=== PATIENT | male | born 1960 | race Caucasian/White ===

== ENCOUNTER 2016-11-24 16:02 | Inpatient (IN) | payer BC ==
[~2016-11-24] VITALS: Ht 182.9 cm; Wt 107.8 kg
[~2016-11-24 16:02] MED LIST: ACTOS 15MG TAB15 MG PO; APRESOLINE 25MG25 MG PO; CEPHALEXIN500 M1 PO; COREG12.5 MG PO; FLEXERIL 1010 MG/TAB PO; LASIX 40MG TABL40 MG PO; LEVEMIR FLEX100 U/ML SQ; NORCO 325 MG-101 TAB PO; NOVOLOG FLEX100 U/ML SQ; PHOS LO; PRILOSEC 20MG20 MG PO; SYNTHROID0.1 MG/TAB PO
[2016-11-24] MEDS ORDERED: LASIX 80MG TABL80 MG PO (17:09)
[2016-11-24] MEDS ORDERED: PRILOSEC 20MG20 MG PO (17:14)
[2016-11-24] MEDS ORDERED: FLEXERIL 1010 MG/TAB PO (17:16)
[2016-11-24] MEDS ORDERED: APRESOLINE50 MG PO (17:18)
[2016-11-24] MEDS ORDERED: NEURONTIN800 MG/TAB PO (17:18)
[2016-11-24] MEDS ORDERED: VELTASSA8.4 GM PO (17:20)
[2016-11-24] MEDS ORDERED: ZAROXOLYN 2.52.5 MG PO (17:22)
[2016-11-24] MEDS ORDERED: CALCITRIOL PO (17:24)
[2016-11-24] MEDS ORDERED: CARDURA 2MG2 MG PO (17:24)
[2016-11-24 19:51] VITALS: BP 171/77; PULSE 53; TEMP 98.6
[2016-11-24 22:33] VITALS: BP 139/63; PULSE 53; TEMP 98.3
[2016-11-25 02:46] VITALS: BP 139/65; PULSE 56; TEMP 98.4
[2016-11-25 07:26] LABS: ADD PATHOLOGY DIFF REVIEW NO; HEMATOCRIT 24.9 % (42.0-52.0); HEMOGLOBIN 7.9 g/dl (13.5-18.0); MEAN CELL VOLUME 97 fl (80.0-100.0); MEAN CORPUSCULAR HEMOGLOBIN 31 pg (27.0-31.0); MEAN CORPUSCULAR HGB CONC 32 g/dl (33.0-37.0); MEAN PLATELET VOLUME 10.7 fl (7.4-10.4); PLATELET COUNT 130 K/mm3 (130-400); RED BLOOD COUNT 2.57 M/mm3 (4.20-5.60); REDCELL DISTRIBUTION WIDTH-CV 16.3 % (11.5-14.5); WHITE BLOOD COUNT 3.9 K/mm3 (4.8-10.8)
[2016-11-25 07:31] LABS: INR 1.2 (0.8-3.0); PROTHROMBIN TIME 13.1 SECONDS (9.7-12.8)
[2016-11-25 07:39] VITALS: BP 162/73; PULSE 55; TEMP 97.3
[2016-11-25 07:42] LABS: CALCIUM 8.3 mg/dL (8.4-10.2); POTASSIUM 5.1 mmol/L (3.4-5.0)
[2016-11-25 07:54] LABS: CREATININE, serum 4.5 mg/dL (0.66-1.25)
[2016-11-25 08:44] LABS: BAND 4 % (0-10); BASOPHIL 2 % (0-2); EOSINOPHIL 4 % (0-4); METAMYELOCYTE 4 % (0-0); NEUTROPHILS 64 % (42.0-75.2); PLATELET ESTIMATE NORMAL (NORMAL); TOTAL CELLS COUNTED 100
[2016-11-25 08:46] LABS: ACANTHOCYTES 1+; ANISOCYTOSIS 1+; MICROCYTOSIS 1+
[2016-11-25 11:32] VITALS: BP 206/87; PULSE 51
[2016-11-25 12:12] LABS: ARTERIAL BLD GAS O2 SATURATION 98.7 % (92-100); ARTERIAL BLOOD GAS BASE EXCESS -7.5 (-2-2); ARTERIAL BLOOD GAS HCO3 17.7 meq/L (22-26); ARTERIAL BLOOD GAS PO2 243.1 mmHg (80-100); ARTERIAL BLOOD GAS pH 7.32 (7.35-7.45)
[2016-11-25 12:13] LABS: ARTERIAL BLD GAS TCO2 CT 18.8; ATS? YES
[2016-11-25 16:38] VITALS: BP 140/88; PULSE 60; TEMP 98.1
[2016-11-25 16:59] VITALS: BP 143/69; PULSE 51; TEMP 98.9
[2016-11-25 19:39] LABS: MEAN CELL VOLUME 97 fl (80.0-100.0); MEAN CORPUSCULAR HGB CONC 31 g/dl (33.0-37.0); MEAN PLATELET VOLUME 11.1 fl (7.4-10.4); PLATELET COUNT 123 K/mm3 (130-400); REDCELL DISTRIBUTION WIDTH-CV 16.2 % (11.5-14.5); WHITE BLOOD COUNT 6.6 K/mm3 (4.8-10.8)
[2016-11-25 19:40] LABS: HEMATOCRIT 28.2 % (42.0-52.0); HEMOGLOBIN 8.8 g/dl (13.5-18.0); MEAN CORPUSCULAR HEMOGLOBIN 30 pg (27.0-31.0)
[2016-11-25 19:42] LABS: ADD PATHOLOGY DIFF REVIEW NO
[2016-11-25 19:44] LABS: INR 1.2 (0.8-3.0); PROTHROMBIN TIME 13.2 SECONDS (9.7-12.8)
[2016-11-25 19:49] LABS: ALBUMIN 3.4 gm/dL (3.5-5.0); BILIRUBIN,TOTAL 0.7 mg/dL (0.0-1.0); CALCIUM 8.5 mg/dL (8.4-10.2); CREATININE, serum 3.87 mg/dL (0.66-1.25); MAGNESIUM 2.2 mg/dL (1.6-2.3); PHOSPHOROUS 5.6 mg/dL (2.5-4.5); TOTAL PROTEIN 6.1 gm/dL (6.4-8.2)
[2016-11-25 20:01] LABS: BAND 4 % (0-10); BASOPHIL 2 % (0-2); EOSINOPHIL 2 % (0-4); HYPOCHROMIA 1+; NEUTROPHILS 72 % (42.0-75.2); POIKILOCYTOSIS 2+; SCHISTOCYTES 1+; TARGET CELLS 1+; TOTAL CELLS COUNTED 100
[2016-11-25 20:02] LABS: ANISOCYTOSIS 1+; BURR CELLS 1+; MICROCYTOSIS 1+; ROULEAUX 1+
[2016-11-25 20:03] LABS: TROPONIN-I 0.083 ng/mL (0.000-0.034)
[2016-11-25 20:17] LABS: ARTERIAL BLD GAS O2 SATURATION 41.5 % (92-100); ARTERIAL BLD GAS TCO2 CT 25.5; ARTERIAL BLOOD GAS HCO3 23.6 meq/L (22-26); ARTERIAL BLOOD GAS PHT 7.21 C (7.35-7.45); ARTERIAL BLOOD GAS pH 7.21 (7.35-7.45)
[2016-11-25 20:25] LABS: ARTERIAL BLOOD GAS PO2 26.3 mmHg (80-100); ARTERIAL BLOOD GAS PO2T 26.3 (80-100)
[2016-11-25 20:26] LABS: ALLEN TEST YES; ALLENS TEST RESULT PASS; ATS? YES
[2016-12-11] MEDS ORDERED: NORVASC 10MG10 MG PO (11:42)
[2016-12-11] MEDS ORDERED: COZAAR 50MG50 MG/TAB PO (11:42)
[2016-12-11] MEDS ORDERED: APRESOLINE50 MG PO (11:43)
[2016-12-11] MEDS ORDERED: NEURONTIN300 MG/CAP PO (11:44)
[2016-12-11] MEDS ORDERED: NORCO 325 MG-51 TAB PO (11:45)
[2016-12-11] MEDS ORDERED: NOVOLOG 100U100 U/M1 SQ (11:46)
== END 2016-11-25 20:14 | disposition short-term general hospital (02) | DRG 682 ==
LOC: MEDICAL 16:02 → ICU 11-25 14:31 → MEDICAL 11-25 15:39 → ICU 11-25 19:42 → MEDICAL 11-25 20:00
PROVIDERS: Internal Medicine
PROC: 0BH17EZ Insertion of Endotracheal Airway into Trachea, Via Natural or Artificial Opening (ICD-10-PCS; principal; 2016-11-25)
PROC: 5A1935Z Respiratory Ventilation, Less than 24 Consecutive Hours (ICD-10-PCS; 2016-11-25)
PROC: 5A1D00Z (ICD-10-PCS; 2016-11-25)
DX: I12.0 Hypertensive chronic kidney disease with stage 5 chronic kidney disease or end stage renal disease (principal); N18.6 End stage renal disease; I46.8 Cardiac arrest due to other underlying condition; E87.2 Acidosis; D63.1 Anemia in chronic kidney disease; E87.5 Hyperkalemia; E11.21 Type 2 diabetes mellitus with diabetic nephropathy; Z79.4 Long term (current) use of insulin; Z91.81 History of falling
CPT/HCPCS: C1751; C1769; J0171; J0461; J0690; J1940; J2250; J2310; J2704; J3010; J7120

== ENCOUNTER → 2016-12-12 | Outpatient (CLI) | payer BC ==
[~2016-12-12] VITALS: Ht 182.9 cm; Wt 77.3 kg
[~2016-12-12] MED LIST changes: +APRESOLINE50 MG PO; +ARANESP0.06 MG/0. SQ; +CALCITRIOL PO; +CARAFATE 1GM1 G PO; +CARDURA 2MG2 MG PO; +COZAAR 50MG50 MG/TAB PO; +ELIQUIS 5MG PO; +FERRO-TIME325 MG PO; +FLONASEALLERGY NS; +FOLIC ACID 11 MG/TA1 PO; +GOOD NEIGHBOR P1 CRE TP; +IMODIUM 2MG CAPS2 MG PO; +LASIX 80MG TABL80 MG PO; +MYLICON 8080 MG/TAB. PO; +NEURONTIN300 MG/CAP PO; +NEURONTIN800 MG/TAB PO; +NORCO 325 MG-51 TAB PO; +NORVASC 10MG10 MG PO; +NOVOLOG 100U100 U/M1 SQ; +OMNICEF 300MG300 MG PO; +PACERONE400 MG PO; +PHENERGAN 25 TA25 MG PO; +PROAIR HFA0.09 MG/AC IH; +ROXICODONE15 MG PO; +VELTASSA8.4 GM PO; +ZANTAC 150MG T150 MG PO; +ZAROXOLYN 2.52.5 MG PO; +ZOFRAN ODT4 MG PO; +[UNRECOGNIZED DRUG - OTHER] PO
[2016-12-12 07:34] VITALS: BP 156/81; PULSE 73
[2016-12-12 08:21] VITALS: BP 166/87; PULSE 75
== END ==
LOC: COL.RAD 07:14
DX: N18.6 End stage renal disease (principal)

== ENCOUNTER 2017-01-19 14:24 | Inpatient (IN) | payer BC ==
[~2017-01-19] VITALS: Ht 182.9 cm; Wt 72.9 kg
[~2017-01-19 14:24] MED LIST changes: -ARANESP0.06 MG/0. SQ; -CARAFATE 1GM1 G PO; -ELIQUIS 5MG PO; -FERRO-TIME325 MG PO; -FLONASEALLERGY NS; -FOLIC ACID 11 MG/TA1 PO; -GOOD NEIGHBOR P1 CRE TP; -IMODIUM 2MG CAPS2 MG PO; -MYLICON 8080 MG/TAB. PO; -OMNICEF 300MG300 MG PO; -PACERONE400 MG PO; -PHENERGAN 25 TA25 MG PO; -PROAIR HFA0.09 MG/AC IH; -ROXICODONE15 MG PO; -ZANTAC 150MG T150 MG PO; -ZOFRAN ODT4 MG PO; -[UNRECOGNIZED DRUG - OTHER] PO
[2017-01-19 16:24] LABS: CALCIUM 8.7 mg/dL (8.4-10.2)
[2017-01-19 16:35] LABS: CREATININE, serum 6.26 mg/dL (0.66-1.25); POTASSIUM 6.4 mmol/L (3.4-5.0)
[2017-01-19] MEDS ORDERED: ZAROXOLYN 2.52.5 MG PO (17:05)
[2017-01-19] MEDS ORDERED: FOLIC ACID 11 MG/TA1 PO (17:06)
[2017-01-19] MEDS ORDERED: NORCO 325 MG-51 TAB PO (17:08)
[2017-01-19] MEDS ORDERED: FLEXERIL 1010 MG/TAB PO (17:10)
[2017-01-19] MEDS ORDERED: LASIX 80MG TABL80 MG PO (17:13)
[2017-01-19] MEDS ORDERED: FLONASEALLERGY NS (17:14)
[2017-01-19] MEDS ORDERED: PRILOSEC 20MG20 MG PO (17:15)
[2017-01-19] MEDS ORDERED: ROXICODONE15 MG PO (17:16)
[2017-01-19] MEDS ORDERED: [UNRECOGNIZED DRUG - OTHER] PO (17:17)
[2017-01-19] MEDS ORDERED: FERRO-TIME325 MG PO (17:19)
[2017-01-19 17:41] VITALS: BP 103/55; PULSE 67; TEMP 98.8
[2017-01-19 20:16] LABS: HEMATOCRIT 33.6 % (42.0-52.0); HEMOGLOBIN 10.4 g/dl (13.5-18.0); MEAN CELL VOLUME 101 fl (80.0-100.0); MEAN CORPUSCULAR HEMOGLOBIN 31 pg (27.0-31.0); MEAN CORPUSCULAR HGB CONC 31 g/dl (33.0-37.0); MEAN PLATELET VOLUME 11.4 fl (7.4-10.4); PLATELET COUNT 146 K/mm3 (130-400); RED BLOOD COUNT 3.34 M/mm3 (4.20-5.60); WHITE BLOOD COUNT 14.7 K/mm3 (4.8-10.8)
[2017-01-19 20:48] VITALS: BP 145/65; PULSE 73; TEMP 98.4
[2017-01-19 23:24] VITALS: BP 126/70; PULSE 75; TEMP 98.3
[2017-01-20 03:23] VITALS: BP 137/63; PULSE 75; TEMP 98.5
[2017-01-20 06:21] LABS: MEAN CORPUSCULAR HGB CONC 33 g/dl (33.0-37.0); MEAN PLATELET VOLUME 10.7 fl (7.4-10.4); PLATELET COUNT 135 K/mm3 (130-400); RED BLOOD COUNT 3.34 M/mm3 (4.20-5.60)
[2017-01-20 06:25] LABS: HEMATOCRIT 31.3 % (42.0-52.0); HEMOGLOBIN 10.4 g/dl (13.5-18.0); MEAN CELL VOLUME 94 fl (80.0-100.0); MEAN CORPUSCULAR HEMOGLOBIN 31 pg (27.0-31.0)
[2017-01-20 06:35] LABS: ADJUSTED CALCIUM 9.3 mg/dL (8.4-10.2); ALBUMIN 3.4 gm/dL (3.5-5.0); BILIRUBIN,TOTAL 0.8 mg/dL (0.0-1.0); CALCIUM 8.8 mg/dL (8.4-10.2); TOTAL PROTEIN 6.5 gm/dL (6.4-8.2)
[2017-01-20 06:53] LABS: CREATININE, serum 6.27 mg/dL (0.66-1.25)
[2017-01-20 07:47] LABS: BAND 47 % (0-10); LYMPHOCYTE 8 % (20.0-51.0); METAMYELOCYTE 4 % (0-0); MYELOCYTE 3 % (0-0); NEUTROPHILS 38 % (42.0-75.2); PLATELET ESTIMATE NORMAL (NORMAL); TOTAL CELLS COUNTED 100
[2017-01-20 07:48] LABS: ADD PATHOLOGY DIFF REVIEW YES
[2017-01-20 07:56] VITALS: BP 137/68; PULSE 81; TEMP 98.1
[2017-01-20 08:25] LABS: PATHOLOGY DIFF REVIEW OK
[2017-01-20 15:47] VITALS: BP 130/66; PULSE 69; TEMP 99.2
[2017-01-20 20:21] VITALS: BP 138/62; PULSE 85; TEMP 97.9
[2017-01-20 21:14] LABS: COLLECTION METHOD CLEAN CATCH
[2017-01-20 21:25] LABS: AMORPHOUS CRYSTAL Present /uL; GRANULAR CAST >12 /lpf; HYALINE CAST >12 /lpf; MUCOUS Present /lpf; PH 5 (5-8); SQUAMOUS EPITHELIAL 0-2 /hpf; URINE APPEARANCE Cloudy; URINE BACTERIA Rare /hpf; URINE BILIRUBIN Negative (NEGATIVE); URINE BLOOD Negative (NEGATIVE); URINE COLOR Amber; URINE GLUCOSE Negative (NEGATIVE); URINE KETONE Negative (NEGATIVE); URINE LEUKOCYTE ESTERASE Negative (NEGATIVE); URINE PROTEIN(semi-quant) 2+ (NEGATIVE); URINE UROBILINOGEN Negative (NEGATIVE)
[2017-01-21 00:17] VITALS: BP 133/66; PULSE 91; TEMP 98.1
[2017-01-21 04:08] VITALS: BP 136/61; PULSE 86; TEMP 97.9
[2017-01-21 07:26] LABS: MEAN CELL VOLUME 92 fl (80.0-100.0); MEAN CORPUSCULAR HGB CONC 34 g/dl (33.0-37.0); MEAN PLATELET VOLUME 10.5 fl (7.4-10.4); PLATELET COUNT 140 K/mm3 (130-400); RED BLOOD COUNT 3.14 M/mm3 (4.20-5.60); WHITE BLOOD COUNT 9.4 K/mm3 (4.8-10.8)
[2017-01-21 07:36] VITALS: BP 146/67; PULSE 87; TEMP 98.8
[2017-01-21 07:44] LABS: HEMATOCRIT 28.9 % (42.0-52.0); HEMOGLOBIN 9.7 g/dl (13.5-18.0); MEAN CORPUSCULAR HEMOGLOBIN 31 pg (27.0-31.0)
[2017-01-21 07:45] LABS: ADD PATHOLOGY DIFF REVIEW NO
[2017-01-21 07:48] LABS: ADJUSTED CALCIUM 9.2 mg/dL (8.4-10.2); ALBUMIN 3.1 gm/dL (3.5-5.0); CALCIUM 8.5 mg/dL (8.4-10.2); POTASSIUM 4.5 mmol/L (3.4-5.0)
[2017-01-21 08:13] LABS: CREATININE, serum 4.08 mg/dL (0.66-1.25)
[2017-01-21 09:35] LABS: BAND 54 % (0-10); LYMPHOCYTE 4 % (20.0-51.0); METAMYELOCYTE 1 % (0-0); NEUTROPHILS 37 % (42.0-75.2); PLATELET ESTIMATE NORMAL (NORMAL); TOTAL CELLS COUNTED 100
[2017-01-21 11:43] VITALS: BP 134/63; PULSE 83; TEMP 98.3
[2017-01-21 15:19] VITALS: BP 125/69; PULSE 79; TEMP 98.4
[2017-01-21 19:45] VITALS: BP 125/62; PULSE 80; TEMP 97.9
[2017-01-22] VITALS (7 sets, daily range): BP systolic 120–175; BP diastolic 51–82; PULSE 79–98; TEMP 10.4
[2017-01-22 08:23] LABS: MEAN CELL VOLUME 91 fl (80.0-100.0); MEAN CORPUSCULAR HGB CONC 34 g/dl (33.0-37.0); MEAN PLATELET VOLUME 10.6 fl (7.4-10.4); PLATELET COUNT 163 K/mm3 (130-400)
[2017-01-22 08:25] LABS: ADD PATHOLOGY DIFF REVIEW NO; HEMATOCRIT 29.2 % (42.0-52.0); HEMOGLOBIN 9.8 g/dl (13.5-18.0); MEAN CORPUSCULAR HEMOGLOBIN 31 pg (27.0-31.0)
[2017-01-22 08:32] LABS: ADJUSTED CALCIUM 9.3 mg/dL (8.4-10.2); ALBUMIN 2.9 gm/dL (3.5-5.0); BILIRUBIN,TOTAL 0.8 mg/dL (0.0-1.0); CALCIUM 8.4 mg/dL (8.4-10.2); POTASSIUM 3.9 mmol/L (3.4-5.0); TOTAL PROTEIN 5.8 gm/dL (6.4-8.2)
[2017-01-22 08:44] LABS: CREATININE, serum 4.59 mg/dL (0.66-1.25)
[2017-01-22 09:11] LABS: BAND 60 % (0-10); LYMPHOCYTE 1 % (20.0-51.0); NEUTROPHILS 34 % (42.0-75.2); TOTAL CELLS COUNTED 100
[2017-01-22 09:12] LABS: PLATELET ESTIMATE NORMAL (NORMAL)
[2017-01-22 09:17] LABS: POLYCHROMASIA 1+
[2017-01-23] VITALS (17 sets, daily range): BP systolic 110–164; BP diastolic 63–90; PULSE 07–113; TEMP 97.6–99.1
[2017-01-23 07:19] LABS: MEAN CELL VOLUME 92 fl (80.0-100.0); MEAN CORPUSCULAR HGB CONC 33 g/dl (33.0-37.0); PLATELET COUNT 170 K/mm3 (130-400); RED BLOOD COUNT 3.44 M/mm3 (4.20-5.60); WHITE BLOOD COUNT 13.2 K/mm3 (4.8-10.8)
[2017-01-23 07:27] LABS: HEMATOCRIT 31.7 % (42.0-52.0); HEMOGLOBIN 10.6 g/dl (13.5-18.0); MEAN CORPUSCULAR HEMOGLOBIN 31 pg (27.0-31.0)
[2017-01-23 07:28] LABS: ADD PATHOLOGY DIFF REVIEW NO
[2017-01-23 07:30] LABS: CALCIUM 8.4 mg/dL (8.4-10.2); CREATININE, serum 3.06 mg/dL (0.66-1.25); POTASSIUM 3.7 mmol/L (3.4-5.0)
[2017-01-23 08:04] LABS: BAND 38 % (0-10); LYMPHOCYTE 5 % (20.0-51.0); METAMYELOCYTE 1 % (0-0); NEUTROPHILS 55 % (42.0-75.2); PLATELET ESTIMATE NORMAL (NORMAL); TOTAL CELLS COUNTED 100
[2017-01-23 10:12] LABS: INR 1.1 (0.8-3.0); PROTHROMBIN TIME 12.5 SECONDS (9.7-12.8)
[2017-01-24] VITALS (7 sets, daily range): BP systolic 115–143; BP diastolic 59–68; PULSE 73–95; TEMP 98.1–102.2
[2017-01-24 06:33] LABS: MEAN CELL VOLUME 92 fl (80.0-100.0); MEAN CORPUSCULAR HGB CONC 33 g/dl (33.0-37.0); MEAN PLATELET VOLUME 10.3 fl (7.4-10.4); PLATELET COUNT 172 K/mm3 (130-400); RED BLOOD COUNT 3.33 M/mm3 (4.20-5.60); WHITE BLOOD COUNT 13.1 K/mm3 (4.8-10.8)
[2017-01-24 06:36] LABS: ADD PATHOLOGY DIFF REVIEW NO; HEMATOCRIT 30.7 % (42.0-52.0); HEMOGLOBIN 10.1 g/dl (13.5-18.0); MEAN CORPUSCULAR HEMOGLOBIN 30 pg (27.0-31.0)
[2017-01-24 06:49] LABS: CALCIUM 8.3 mg/dL (8.4-10.2); CREATININE, serum 2.88 mg/dL (0.66-1.25); POTASSIUM 3.9 mmol/L (3.4-5.0)
[2017-01-24 07:57] LABS: BAND 51 % (0-10); LYMPHOCYTE 6 % (20.0-51.0); METAMYELOCYTE 1 % (0-0); NEUTROPHILS 35 % (42.0-75.2); PLATELET ESTIMATE NORMAL (NORMAL); TOTAL CELLS COUNTED 100; TOXIC GRANULATION PRESENT
[2017-01-24 08:00] LABS: DOHLE BODIES PRESENT
[2017-01-25 03:00] VITALS: BP 129/64; PULSE 74; TEMP 99.1
[2017-01-25 07:25] LABS: MEAN CELL VOLUME 91 fl (80.0-100.0); MEAN CORPUSCULAR HGB CONC 34 g/dl (33.0-37.0); MEAN PLATELET VOLUME 10.7 fl (7.4-10.4); PLATELET COUNT 171 K/mm3 (130-400); RED BLOOD COUNT 3.08 M/mm3 (4.20-5.60); WHITE BLOOD COUNT 17.8 K/mm3 (4.8-10.8)
[2017-01-25 07:36] LABS: HEMOGLOBIN 9.4 g/dl (13.5-18.0); MEAN CORPUSCULAR HEMOGLOBIN 31 pg (27.0-31.0)
[2017-01-25 07:37] LABS: ADD PATHOLOGY DIFF REVIEW NO
[2017-01-25 07:38] LABS: CALCIUM 7.9 mg/dL (8.4-10.2); CREATININE, serum 3.81 mg/dL (0.66-1.25)
[2017-01-25 07:47] VITALS: BP 131/62; PULSE 65; TEMP 98.1
[2017-01-25 09:44] LABS: BAND 42 % (0-10); METAMYELOCYTE 3 % (0-0); NEUTROPHILS 48 % (42.0-75.2); PLATELET ESTIMATE NORMAL (NORMAL); TOTAL CELLS COUNTED 100; TOXIC GRANULATION PRESENT
[2017-01-25 09:45] LABS: DOHLE BODIES PRESENT
[2017-01-25 11:09] VITALS: BP 113/58; PULSE 77; TEMP 98.3
[2017-01-25 14:58] VITALS: BP 114/61; PULSE 69; TEMP 98.5
[2017-01-25 19:43] VITALS: BP 119/51; PULSE 63; TEMP 97.9
[2017-01-25 23:50] VITALS: BP 120/53; PULSE 65; TEMP 97.5
[2017-01-26 04:10] VITALS: BP 111/53; PULSE 63; TEMP 97.9
[2017-01-26 07:41] LABS: MEAN CELL VOLUME 90 fl (80.0-100.0); MEAN CORPUSCULAR HGB CONC 34 g/dl (33.0-37.0); MEAN PLATELET VOLUME 10.7 fl (7.4-10.4); PLATELET COUNT 196 K/mm3 (130-400); RED BLOOD COUNT 3.15 M/mm3 (4.20-5.60); WHITE BLOOD COUNT 19.6 K/mm3 (4.8-10.8)
[2017-01-26 07:44] LABS: HEMATOCRIT 28.4 % (42.0-52.0); HEMOGLOBIN 9.6 g/dl (13.5-18.0); MEAN CORPUSCULAR HEMOGLOBIN 30 pg (27.0-31.0)
[2017-01-26 07:45] LABS: ADD PATHOLOGY DIFF REVIEW NO
[2017-01-26 07:57] LABS: POTASSIUM 4.3 mmol/L (3.4-5.0)
[2017-01-26 07:58] VITALS: BP 115/52; PULSE 63; TEMP 97.5
[2017-01-26 08:01] LABS: BAND 25 % (0-10); BASOPHIL 1 % (0-2); EOSINOPHIL 2 % (0-4); LYMPHOCYTE 9 % (20.0-51.0); METAMYELOCYTE 1 % (0-0); NEUTROPHILS 60 % (42.0-75.2); PLATELET ESTIMATE NORMAL (NORMAL); TOTAL CELLS COUNTED 100; TOXIC GRANULATION PRESENT
[2017-01-26 08:03] LABS: CREATININE, serum 4.46 mg/dL (0.66-1.25)
[2017-01-26 09:58] VITALS: BP 118/65; PULSE 61; TEMP 97
[2017-01-26 12:18] VITALS: BP 110/60; PULSE 63; TEMP 97.4
[2017-01-26 18:49] VITALS: BP 136/63; PULSE 69
[2017-01-27] VITALS (12 sets, daily range): BP systolic 110–150; BP diastolic 53–83; PULSE 64–87; TEMP 97.2–98.7
[2017-01-28] VITALS (7 sets, daily range): BP systolic 141–159; BP diastolic 66–76; PULSE 66–74; TEMP 97.9–99.1
[2017-01-28 06:26] LABS: ADD PATHOLOGY DIFF REVIEW NO
[2017-01-28 06:29] LABS: MEAN CELL VOLUME 92 fl (80.0-100.0); MEAN CORPUSCULAR HGB CONC 33 g/dl (33.0-37.0); MEAN PLATELET VOLUME 9.9 fl (7.4-10.4); PLATELET COUNT 268 K/mm3 (130-400); RED BLOOD COUNT 3.17 M/mm3 (4.20-5.60); WHITE BLOOD COUNT 14.4 K/mm3 (4.8-10.8)
[2017-01-28 06:30] LABS: HEMATOCRIT 29.2 % (42.0-52.0); HEMOGLOBIN 9.5 g/dl (13.5-18.0); MEAN CORPUSCULAR HEMOGLOBIN 30 pg (27.0-31.0)
[2017-01-28 06:42] LABS: ALBUMIN 2.6 gm/dL (3.5-5.0); CALCIUM 8.2 mg/dL (8.4-10.2); CREATININE, serum 3.83 mg/dL (0.66-1.25); PHOSPHOROUS 3.8 mg/dL (2.5-4.5); POTASSIUM 4.3 mmol/L (3.4-5.0)
[2017-01-28 07:21] LABS: BAND 31 % (0-10); BASOPHIL 1 % (0-2); EOSINOPHIL 1 % (0-4); LYMPHOCYTE 5 % (20.0-51.0); METAMYELOCYTE 2 % (0-0); MYELOCYTE 1 % (0-0); NEUTROPHILS 58 % (42.0-75.2); TOTAL CELLS COUNTED 100
[2017-01-28 07:28] LABS: PLATELET ESTIMATE NORMAL (NORMAL)
[2017-01-28 07:29] LABS: HYPOCHROMIA 1+
[2017-01-28] MEDS ORDERED: PACERONE400 MG PO (16:52)
[2017-01-28] MEDS ORDERED: NORCO 325 MG-51 TAB PO (20:52)
[2017-01-28] MEDS ORDERED: ELIQUIS 5MG PO (20:55)
[2017-01-28] MEDS ORDERED: ZANTAC 150MG T150 MG PO (20:56)
[2017-01-28] MEDS ORDERED: ZOFRAN ODT4 MG PO (20:56)
== END 2017-01-28 18:36 | DRG 917 ==
LOC: MEDICAL 14:24
PROVIDERS: Internal Medicine; Internal Medicine Interventional Cardiology; Internal Medicine Nephrology
PROC: 5A1D60Z (ICD-10-PCS; principal; 2017-01-20)
PROC: 5A2204Z Restoration of Cardiac Rhythm, Single (ICD-10-PCS; 2017-01-23)
PROC: 0DB68ZX Excision of Stomach, Via Natural or Artificial Opening Endoscopic, Diagnostic (ICD-10-PCS; 2017-01-27)
DX: T42.6X1A Poisoning by other antiepileptic and sedative-hypnotic drugs, accidental (unintentional), initial encounter (principal); N18.6 End stage renal disease; J18.9 Pneumonia, unspecified organism; K25.4 Chronic or unspecified gastric ulcer with hemorrhage; I12.0 Hypertensive chronic kidney disease with stage 5 chronic kidney disease or end stage renal disease; N25.81 Secondary hyperparathyroidism of renal origin; I48.92 Unspecified atrial flutter; E44.0 Moderate protein-calorie malnutrition; R41.82 Altered mental status, unspecified; E11.22 Type 2 diabetes mellitus with diabetic chronic kidney disease; E11.42 Type 2 diabetes mellitus with diabetic polyneuropathy; Z99.2 Dependence on renal dialysis; Z79.4 Long term (current) use of insulin; D63.1 Anemia in chronic kidney disease; I48.0 Paroxysmal atrial fibrillation
CPT/HCPCS: J0692; J0882; J1650; J1815; J2250; J2704; J3010; J7030

== ENCOUNTER 2017-01-28 16:57 | Inpatient (IN) | payer BC ==
[~2017-01-28] VITALS: Ht 182.9 cm; Wt 74.9 kg
[~2017-01-28 16:57] MED LIST changes: +FERRO-TIME325 MG PO; +FLONASEALLERGY NS; +FOLIC ACID 11 MG/TA1 PO; +PACERONE400 MG PO; +ROXICODONE15 MG PO; +[UNRECOGNIZED DRUG - OTHER] PO
[2017-01-28] MEDS ORDERED: NORCO 325 MG-51 TAB PO (20:52)
[2017-01-28 20:55] VITALS: BP 150/63; PULSE 72; TEMP 98.7
[2017-01-28] MEDS ORDERED: ELIQUIS 5MG PO (20:55)
[2017-01-28] MEDS ORDERED: ZANTAC 150MG T150 MG PO (20:56)
[2017-01-28] MEDS ORDERED: ZOFRAN ODT4 MG PO (20:56)
[2017-01-29 05:38] VITALS: BP 158/72; PULSE 70; TEMP 97.4
[2017-01-29 17:00] VITALS: BP 137/75; PULSE 68; TEMP 98.4
[2017-01-30 03:43] VITALS: BP 152/67; PULSE 72; TEMP 98.1
[2017-01-30 16:29] VITALS: BP 152/65; PULSE 73; TEMP 97.6
[2017-01-31 06:12] VITALS: BP 168/63; PULSE 71; TEMP 98.1
[2017-01-31 06:18] LABS: MEAN CELL VOLUME 93 fl (80.0-100.0); MEAN CORPUSCULAR HGB CONC 32 g/dl (33.0-37.0); MEAN PLATELET VOLUME 9.8 fl (7.4-10.4); PLATELET COUNT 333 K/mm3 (130-400); REDCELL DISTRIBUTION WIDTH-CV 13.8 % (11.5-14.5); WHITE BLOOD COUNT 15.8 K/mm3 (4.8-10.8)
[2017-01-31 06:19] LABS: ADD PATHOLOGY DIFF REVIEW NO; HEMATOCRIT 27.1 % (42.0-52.0); HEMOGLOBIN 8.7 g/dl (13.5-18.0); MEAN CORPUSCULAR HEMOGLOBIN 30 pg (27.0-31.0)
[2017-01-31 06:31] LABS: CALCIUM 8.2 mg/dL (8.4-10.2); POTASSIUM 5.1 mmol/L (3.4-5.0)
[2017-01-31 06:37] LABS: CREATININE, serum 3.99 mg/dL (0.66-1.25)
[2017-01-31 07:10] LABS: BAND 42 % (0-10); METAMYELOCYTE 1 % (0-0); NEUTROPHILS 53 % (42.0-75.2); PLATELET ESTIMATE INCREASED (NORMAL); TOTAL CELLS COUNTED 100
[2017-01-31 07:11] LABS: OVALOCYTES 1+
[2017-01-31 16:07] VITALS: BP 157/72; PULSE 70; TEMP 99.1
[2017-01-31 16:39] VITALS: TEMP 98
[2017-02-01 06:14] VITALS: BP 148/56; PULSE 70; TEMP 98.8
[2017-02-01 13:06] LABS: PH 5 (5-8); SQUAMOUS EPITHELIAL None Seen /hpf; URINE APPEARANCE Hazy; URINE BACTERIA None Seen /hpf; URINE BILIRUBIN Negative (NEGATIVE); URINE BLOOD Negative (NEGATIVE); URINE COLOR Yellow; URINE GLUCOSE 1+ (NEGATIVE); URINE KETONE Negative (NEGATIVE); URINE RBC 0-2 /hpf; URINE UROBILINOGEN Negative (NEGATIVE)
[2017-02-01 16:42] VITALS: BP 137/59; PULSE 64; TEMP 98.9
[2017-02-02 06:11] VITALS: BP 147/62; PULSE 67; TEMP 98.6
[2017-02-02 08:06] LABS: BASO # 0.1 (0.0-0.2); BASO % 0.4 % (0.0-2.0); EOS # 0.2 (0.0-0.7); EOS % 1.3 % (0-4.0); GRAN # 9.3 (1.4-6.5); LYMPH # 0.8 (1.2-3.4); LYMPH % 6.6 % (20.0-51.0); MEAN CELL VOLUME 94 fl (80.0-100.0); MEAN CORPUSCULAR HGB CONC 32 g/dl (33.0-37.0); MEAN PLATELET VOLUME 9.7 fl (7.4-10.4); MONO # 1.5 (0.1-0.6); MONO % 12.4 % (1.7-9.3); PLATELET COUNT 339 K/mm3 (130-400); RED BLOOD COUNT 2.95 M/mm3 (4.20-5.60); REDCELL DISTRIBUTION WIDTH-CV 14.1 % (11.5-14.5); WHITE BLOOD COUNT 11.9 K/mm3 (4.8-10.8)
[2017-02-02 08:07] LABS: HEMATOCRIT 27.6 % (42.0-52.0); HEMOGLOBIN 8.9 g/dl (13.5-18.0); MEAN CORPUSCULAR HEMOGLOBIN 30 pg (27.0-31.0)
[2017-02-02 08:18] LABS: ADJUSTED CALCIUM 9.1 mg/dL (8.4-10.2); ALBUMIN 2.7 gm/dL (3.5-5.0); BILIRUBIN,TOTAL 0.4 mg/dL (0.0-1.0); CALCIUM 8.1 mg/dL (8.4-10.2); POTASSIUM 5.3 mmol/L (3.4-5.0); TOTAL PROTEIN 5.7 gm/dL (6.4-8.2)
[2017-02-02 08:44] LABS: CREATININE, serum 4.23 mg/dL (0.66-1.25)
[2017-02-02 17:37] VITALS: BP 153/69; PULSE 66; TEMP 98.3
[2017-02-02 20:00] VITALS: BP 140/47; PULSE 72; TEMP 98.7
[2017-02-03 04:35] VITALS: BP 153/53; PULSE 65; TEMP 99.2
[2017-02-03 04:46] VITALS: BP 153/53; PULSE 65; TEMP 99.2
[2017-02-03 06:03] LABS: BASO % 0.3 % (0.0-2.0); EOS # 0.1 (0.0-0.7); EOS % 0.9 % (0-4.0); GRAN # 8.6 (1.4-6.5); GRAN % 78.1 % (42.2-75.2); HEMOGLOBIN 8.1 g/dl (13.5-18.0); LYMPH # 1.1 (1.2-3.4); LYMPH % 10.3 % (20.0-51.0); MEAN CELL VOLUME 94 fl (80.0-100.0); MEAN CORPUSCULAR HEMOGLOBIN 30 pg (27.0-31.0); MEAN CORPUSCULAR HGB CONC 32 g/dl (33.0-37.0); MEAN PLATELET VOLUME 9.4 fl (7.4-10.4); MONO # 1.1 (0.1-0.6); MONO % 9.5 % (1.7-9.3); PLATELET COUNT 327 K/mm3 (130-400); RED BLOOD COUNT 2.67 M/mm3 (4.20-5.60); REDCELL DISTRIBUTION WIDTH-CV 14.4 % (11.5-14.5)
[2017-02-03 06:19] LABS: CALCIUM 7.9 mg/dL (8.4-10.2); POTASSIUM 5.5 mmol/L (3.4-5.0)
[2017-02-03 06:20] LABS: CREATININE, serum 4.11 mg/dL (0.66-1.25)
[2017-02-03 08:40] VITALS: BP 143/57; PULSE 88; TEMP 98
[2017-02-03 17:15] VITALS: BP 142/69; PULSE 68; TEMP 98.6
[2017-02-04 03:38] VITALS: BP 146/60; PULSE 83; TEMP 99.1
[2017-02-04] MEDS ORDERED: PHENERGAN 25 TA25 MG PO (07:33)
[2017-02-04] MEDS ORDERED: PROAIR HFA0.09 MG/AC IH (07:34)
[2017-02-04] MEDS ORDERED: ARANESP0.06 MG/0. SQ (07:34)
[2017-02-04] MEDS ORDERED: IMODIUM 2MG CAPS2 MG PO (07:35)
[2017-02-04] MEDS ORDERED: GOOD NEIGHBOR P1 CRE TP (07:35)
[2017-02-04] MEDS ORDERED: MYLICON 8080 MG/TAB. PO (07:36)
[2017-02-04] MEDS ORDERED: CARAFATE 1GM1 G PO (07:37)
[2017-02-04] MEDS ORDERED: OMNICEF 300MG300 MG PO (07:38)
[2017-02-04] MEDS ORDERED: NORCO 325 MG-51 TAB PO (07:38)
== END 2017-02-04 12:45 | disposition home or self-care (01) | DRG 70 ==
PROVIDERS: Family Medicine; Internal Medicine Nephrology; Nurse Practitioner Family
PROC: 5A1D60Z (ICD-10-PCS; principal; 2017-01-31)
DX: G93.41 Metabolic encephalopathy (principal); N18.6 End stage renal disease; J18.9 Pneumonia, unspecified organism; I48.92 Unspecified atrial flutter; I12.0 Hypertensive chronic kidney disease with stage 5 chronic kidney disease or end stage renal disease; N25.81 Secondary hyperparathyroidism of renal origin; E44.0 Moderate protein-calorie malnutrition; E11.22 Type 2 diabetes mellitus with diabetic chronic kidney disease; Z99.2 Dependence on renal dialysis; E11.21 Type 2 diabetes mellitus with diabetic nephropathy; D63.1 Anemia in chronic kidney disease; M54.9 Dorsalgia, unspecified; G89.21 Chronic pain due to trauma
CPT/HCPCS: 99222-AI; 99232-AI; 99239; A9284; J0881; J1815; J2543; J2916; J7050

== ENCOUNTER 2018-01-01 11:51 | Day surgery (SDC) | payer MEDICARE, BC ==
[~2018-01-01 11:51] MED LIST changes: +ARANESP0.06 MG/0. SQ; +CARAFATE 1GM1 G PO; +ELIQUIS 5MG PO; +GOOD NEIGHBOR P1 CRE TP; +IMODIUM 2MG CAPS2 MG PO; +MYLICON 8080 MG/TAB. PO; +OMNICEF 300MG300 MG PO; +PHENERGAN 25 TA25 MG PO; +PROAIR HFA0.09 MG/AC IH; +ZANTAC 150MG T150 MG PO; +ZOFRAN ODT4 MG PO
[2018-01-01 13:28] VITALS: BP 115/83; PULSE 88; TEMP 98
[2018-01-01 14:55] VITALS: BP 173/75; PULSE 90; TEMP 98
[2018-01-01 15:18] VITALS: BP 170/68; PULSE 82; TEMP 98
[2018-01-01 15:38] VITALS: BP 162/72; PULSE 88; TEMP 98
[2018-01-01 16:16] VITALS: BP 175/77; PULSE 83
== END 2018-01-01 16:19 | disposition home or self-care (01) ==
LOC: EUO 11:51
DX: Z45.2 Encounter for adjustment and management of vascular access device (principal); N18.6 End stage renal disease; I51.7 Cardiomegaly; Z99.2 Dependence on renal dialysis; Z95.828 Presence of other vascular implants and grafts
CPT/HCPCS: C1769; J1644

== ENCOUNTER → 2018-01-27 | Outpatient (CLI) | payer MEDICARE, BC ==
[~2018-01-27] VITALS: Ht 183 cm; Wt 77.5 kg
[2018-01-27 07:18] VITALS: BP 180/70; PULSE 73
[2018-01-27 08:00] VITALS: BP 200/70; PULSE 66
== END ==
LOC: COL.RAD 07:01
DX: N18.6 End stage renal disease (principal); Z98.890 Other specified postprocedural states

== ENCOUNTER 2018-02-04 05:54 | Outpatient (CLI) | payer MEDICARE, BC ==
[~2018-02-04] VITALS: Ht 183.2 cm; Wt 79.4 kg
[2018-02-04] VITALS (10 sets, daily range): BP systolic 161–193; BP diastolic 75–98; PULSE 65–83; TEMP 98.5
[2018-02-04] MEDS ORDERED: NATURAL IRON65 MG PO (11:59)
== END 2018-02-04 14:56 | disposition home or self-care (01) ==
LOC: COL.CAR 05:54
DX: T82.868A Thrombosis due to vascular prosthetic devices, implants and grafts, initial encounter (principal); E11.22 Type 2 diabetes mellitus with diabetic chronic kidney disease; N18.6 End stage renal disease; Z99.2 Dependence on renal dialysis
CPT/HCPCS: A4216; C1751; C1769; C1887; J1644; J2250; J2997; J3010; Q9967

== ENCOUNTER → 2018-06-17 | Outpatient (CLI) | payer MEDICARE, BC ==
[~2018-06-17] VITALS: Ht 183.2 cm; Wt 78.8 kg
[~2018-06-17] MED LIST changes: +NATURAL IRON65 MG PO
[2018-06-17 12:51] VITALS: BP 171/81; PULSE 68
[2018-06-17 13:48] VITALS: BP 163/74; PULSE 61
== END ==
LOC: COL.RAD 06-15 09:30
DX: Z49.01 Encounter for fitting and adjustment of extracorporeal dialysis catheter (principal)

== ENCOUNTER 2018-12-09 08:38 | Outpatient (CLI) | payer MEDICARE ==
[2018-12-09] VITALS (8 sets, daily range): BP systolic 158–182; BP diastolic 76–89; PULSE 56–66; TEMP 97–98
[~2018-12-09] VITALS: Ht 182.9 cm; Wt 73.2 kg
[2018-12-09] MEDS ORDERED: EMLA CREAM TOP (08:48)
[2018-12-09] MEDS ORDERED: AMBIEN 10MG10 MG PO (08:48)
[2018-12-09] MEDS ORDERED: FOLIC ACID 11 MG/TA1 PO (08:49)
[2018-12-09] MEDS ORDERED: ROXICODONE 55 MG/TAB PO (08:50)
--- NOTE | 2018-12-09 10:42 | NUR ---
ALL MEDICATIONS GIVEN VORB WITH MD. SEE MERGE FOR ALL MEDICATION ADMIN TIMES. SEE MERGE FOR ALL RASS ASSESSMENTS DURING AND POST PROCEDURE.
--- NOTE | 2018-12-09 14:00 | NUR ---
Discharg paperwork discussed with pt. Pt given discharge instructions, med list and education. Answered questions to pt's satisfaction. Pt discharged from express unit. Pt left unit via wheelchair to private vehicle driven by dtr in law.
== END 2018-12-09 14:00 | disposition home or self-care (01) ==
LOC: COL.CAR 08:38
DX: T82.858A Stenosis of other vascular prosthetic devices, implants and grafts, initial encounter (principal); I12.0 Hypertensive chronic kidney disease with stage 5 chronic kidney disease or end stage renal disease; E11.22 Type 2 diabetes mellitus with diabetic chronic kidney disease; N18.6 End stage renal disease; Z79.4 Long term (current) use of insulin; Z87.891 Personal history of nicotine dependence
CPT/HCPCS: C1725; C1769; C1894; J1644; J2250; J3010; Q9967

== ENCOUNTER → 2019-09-07 | Outpatient (CLI) | payer MEDICARE, BC ==
[~2019-09-07] MED LIST changes: +AMBIEN 10MG10 MG PO; +EMLA CREAM TOP; +ROXICODONE 55 MG/TAB PO
== END ==
LOC: ZCOL.LAB 09:56
DX: Z03.818 Encounter for observation for suspected exposure to other biological agents ruled out (principal)